=== PATIENT | female | born 1975 | race Caucasian/White ===

== ENCOUNTER 2023-08-09 03:58 | Emergency (ER) | payer MEDICARE ==
[~2023-08-09] VITALS: Ht 160 cm; Wt 127.0 kg
== END 2023-08-09 05:23 | disposition home or self-care (01) ==
LOC: ED 03:58
DX: M54.50 Low back pain, unspecified (principal); M62.830 Muscle spasm of back; R11.0 Nausea; Z88.0 Allergy status to penicillin; Z88.6 Allergy status to analgesic agent; Z88.5 Allergy status to narcotic agent; Z88.8 Allergy status to other drugs, medicaments and biological substances; Z88.1 Allergy status to other antibiotic agents